=== PATIENT | female | born 1945 | race Caucasian/White ===

== ENCOUNTER → 2017-03-05 | Outpatient (CLI) | payer MEDICARE | END | disposition home or self-care (01) | LOC: PCVCCLINIC 13:00 | PROVIDERS: ATTEND Internal Medicine | DX: E78.4 Other hyperlipidemia (principal); I10 Essential (primary) hypertension; I67.1 Cerebral aneurysm, nonruptured | CPT/HCPCS: 80061 ==

== ENCOUNTER → 2017-03-14 | Outpatient (CLI) | payer MEDICARE ==
[~2017-03-14] MED LIST: REGADENOSON 0.4 MG/5 ML DISP.SYRIN. IV ONE
--- NOTE | 2017-03-18 09:26 | PCVCIMAG ---
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 Time of rest injection: 0910 Date: 03/14/2017 Pharmacologic Stress Pharmacologic stress test was performed by injecting Regadenoson 0.4 mg IV push followed by the intravenous injection of 33.3 mCi of Tc-99m Sestamibi. Time of stress injection: 1020 Date: 03/14/2017 Gated Stress SPECT was performed 45 minutes after stress injection. The images were gated to evaluate regional wall motion and calculate left ventricular ejection fraction. Study Data Post stress, the left ventricular ejection was 73%.. Perfusion There is a lmedium area of moderately reduced uptake in the apical segment of the wall which is seen on the stress images as well as the resting images. This area thickens and moves normally and is most consistent with attenuation artifact. Wall Motion Normal left ventricular wall motion. Clinical Findings: Nonischemic EKG Findings: Nonischemic Nuclear Conclusion 1. LOW RISK STUDY Interpreted by: Lee Davalos MD Electronically Approved: 03/18/2017 09:25:37 Stress Test Details Stress Test: Pharmacologic stress testing performed using 0.4 mg of regadenoson per 5 mL given IV over 10 seconds. Reason for pharmacologic stress test: physical limitation. HR Resting HR: 57 bpmMax Heart Rate (APMHR): 150 bpm Max HR Achieved: 120 bpmTarget HR (85% APMHR): 127 bpm % of APMHR: 80 Recovery HR: 95 bpm HR response to stress: Normal HR response to stress BP Resting BP: 132/63 mmHg Max BP: 143/65 mmHg Recovery BP: 145/64 mmHg ECG Resting ECG: Sinus Rhythm, nonspecific ST-T abnormalities Stress ECG: Sinus Tachycardia, nonspecific ST-T abnormalities ST Change: Non-ischemic Maximum ST Deviation: 1 mm Arrhythmia: None Recovery ECG: Unchanged Recovery Arrhythmia: None Clinical Reason for Termination: Completed protocol, Dyspnea Stress Symptoms: Dyspnea Exercise duration: 0 min 55 sec Symptoms resolved during recovery. Stress ECG Conclusion 1. ADEQUATE RESPONSE TO IV LEXISCAN 2. INADEQUATE RESPONSE FOR ECG DIAGNOSIS <Conclusion> 1. ADEQUATE RESPONSE TO IV LEXISCAN 2. INADEQUATE RESPONSE FOR ECG DIAGNOSIS
--- NOTE | 2017-03-20 10:56 | PCVCIMAG ---
APPROVED REPORT Study performed: 03/14/2017 08:10:47 EXAM: Comprehensive 2D, Doppler, and color-flow Echocardiogram Patient Location: Echo lab Status: routine Other Information Study Quality: Adequate Indications Abnormal ECG Aortic Valve Disease Murmur Hypertension/HDD CVA 2D Dimensions LVEF(%): 84.64 (>50%) IVSd: 18.44 (7-11mm)LVOT Diam: 21.06 (18-24mm) LVDd: 38.84 mm PWd: 9.26 (7-11mm)Ascending Ao: 29.32 (22-36mm) LVDs: 18.22 (25-40mm) Left Atrium: 32.06 (27-40mm) Aortic Root: 21.66 mm LV Single Plane 4CH: 73.17 % LV Single Plane 2CH: 66.62 %Velazquez's LVEF: 69.89 % Biplane EF: 70.0 % Volumes Left Atrial Volume (Systole) Single Plane 4CH: 65.74 mLSingle Plane 2CH: 63.99 mL LA ESV Index: 39.00 mL/m2 Aortic Valve AoV Peak Ejffy.: 2.60 m/s AO Peak Gr.: 25.18 mmHgLVOT Max P.84 mmHg AO Mean Gr.: 15.68 mmHgLVOT Mean P.59 mmHg AO V2 Mean: 1.88 m/sLVOT Max V: 1.42 m/s AO V2 VTI: 57.79 cmLVOT Mean V: 0.99 m/s DION (VTI): 2.01 [id number] V1 VTI: 33.32 cm DION Vmax: 1.89 cm2 SV (LVOT): 116.00 mL Mitral Valve E/A Ratio: 0.7 MV Decel. Time: 159.83 ms MV E Max Jeffy.: 0.76 m/s MV A Jeffy.: 1.02 m/s IVRT: 128.03 ms Pulmonary Vein P Vein S: 0.78 m/sP Vein A: 0.36 m/s P Vein D: 0.44 m/sP Vein A Dur.: 107.3 msec P Vein S/D Ratio: 1.77 Tricuspid Valve TR Peak Jeffy.: 2.40 m/s TR Peak Gr.: 22.98 mmHg TV Vmax: 0.57 m/s Left Ventricle The left ventricle is normal size. There is normal LV segmental wall motion. Asymetric septal hypertrophy with mild concentric hypertrophy. Mild LV gradient with mildly increased LVOT velocity Left ventricular systolic function is normal. The left ventricular ejection fraction is within the normal range. LVEF is 65-70%. Grade I - abnormal relaxation pattern. Right Ventricle The right ventricle is normal size. The right ventricular systolic function is normal. Atria Left atrium is mildly dilated. The right atrium size is normal. Aortic Valve Aortic valve is trileaflet. Aortic valve leaflets are sclerotic with mildly decreased opening. No aortic regurgitation is present. Mild aortic stenosis. Highest mean aortic valve gradient is 16mmHg. Peak aortic valve gradient is 27mmHg. AV Vmax= 2.31m/s Mitral Valve The mitral valve is normal in structure. There is no mitral valve regurgitation noted. No evidence of mitral valve stenosis. Tricuspid Valve The tricuspid valve is normal in structure. Trace to mild tricuspid regurgitation with a PA pressure of 30mmHg. Pulmonic Valve The pulmonary valve is normal in structure. There is no pulmonic valvular regurgitation. Great Vessels The aortic root is normal in size. The ascending aorta is normal in size. IVC is normal in size and collapses with >50% inspiration The pulmonary artery is normal. Pericardium There is no pericardial effusion. There is no pleural effusion. <Conclusion> The left ventricle is normal size. LVEF is 65-70%. Left atrium is mildly dilated. Aortic valve is trileaflet. Aortic valve leaflets are sclerotic with mildly decreased opening. No aortic regurgitation is present. The mitral valve is normal in structure. The tricuspid valve is normal in structure. Trace to mild tricuspid regurgitation with a PA pressure of 30mmHg. The pulmonary valve is normal in structure.
== END | disposition home or self-care (01) ==
LOC: PCVCIMAG 07:59
PROVIDERS: ATTEND Internal Medicine
DX: I07.1 Rheumatic tricuspid insufficiency (principal); I67.1 Cerebral aneurysm, nonruptured; I10 Essential (primary) hypertension; E78.5 Hyperlipidemia, unspecified; I25.10 Atherosclerotic heart disease of native coronary artery without angina pectoris; R00.0 Tachycardia, unspecified; I63.9 Cerebral infarction, unspecified; I35.0 Nonrheumatic aortic (valve) stenosis; R94.31 Abnormal electrocardiogram [ECG] [EKG]
CPT/HCPCS: 78452; 93017; 93306; A9500; J2785